=== PATIENT | female | born 1975 | race Caucasian/White ===

== ENCOUNTER 2021-08-14 17:12 | Emergency (ER) | payer SELFPAY ==
[2014-09-28 10:57] VITALS: BP 95/64
[~2021-08-14 17:12] MED LIST: ACET325T9 PO; ALPR1TAB2 PO; ALPR1TAB6 PO; ASPI325T8 PO; BUPR150T8 PO; BUTA1CAP29 PO; CETI10CA PO; DIPH25CA58 PO; HYDR-2679 PO; HYDR-3165 PO; Hydrocodone Bit/Acetaminophen PO; IBUP800T19 PO; IPRA4AER IH; LISI1TAB37 PO; ONDA4TAB7 PO; Sulfamethoxazole/Trimethoprim PO; TRAM50TA PO; TRAZ300T2 PO
--- NOTE | 2021-08-14 18:24 | PHYS DOC ---
Past History Past Medical History: Anxiety, Hypertension, Migraines, MRSA, Other Past Surgical History: Hysterectomy, Tubal ligation, Other Smoking: Cigarettes, Less than 1pk/day Alcohol Use: None Drug Use: Amphetamine, Benzodiazepine Adult General Chief Complaint Chief Complaint: MULTIPLE COMPLAINTS HPI HPI Left without being seen Allergies Allergies Allergies Coded Allergies Type Severity Reaction Last Updated Verified No Known Drug Allergies 03/25/14 No EKG EKG [] Radiology/Procedures Radiology/Procedures [] Heart Score C/O Chest Pain: N/A Risk Factors: Risk Factors: DM, Current or recent (<one month) smoker, HTN, HLP, family history of CAD, obesity. Risk Scores: Risk Factors: DM, Current or recent (<one month) smoker, HTN, HLP, family history of CAD, obesity. Course & Med Decision Making Course & Med Decision Making Left without being seen Florentin Disclaimer Florentin Disclaimer This electronic medical record was generated, in whole or in part, using a voice recognition dictation system. Departure Departure: Impression: Primary Impression: Patient left without being seen Disposition: 07 LEFT AWOL/ELOPED Condition: LEFT WITHOUT BEING SEEN CHITO CALLEJAS MD Aug 14, 2021 18:24
== END 2021-08-14 18:10 | disposition left against medical advice (07) ==
LOC: ER 17:12
DX: R10.9 Unspecified abdominal pain (principal); Z53.21 Procedure and treatment not carried out due to patient leaving prior to being seen by health care provider; F41.9 Anxiety disorder, unspecified; I10 Essential (primary) hypertension; G43.909 Migraine, unspecified, not intractable, without status migrainosus; F17.210 Nicotine dependence, cigarettes, uncomplicated; Z86.14 Personal history of Methicillin resistant Staphylococcus aureus infection

== ENCOUNTER 2021-11-09 00:53 | Emergency (ER) | payer MEDICAID ==
[~2021-11-09] VITALS: Ht 167.6 cm; Wt 95.4 kg
[2021-11-09 01:12] VITALS: BP 99/71
--- NOTE | 2021-11-09 01:33 | PHYS DOC ---
Past History Past Medical History: Anxiety, Hypertension, Migraines, MRSA, Other Additional Past Medical Histor: blood clots Past Surgical History: Hysterectomy, Tubal ligation, Other Additional Past Surgical Histo: hernia repair, bladder sling Smoking: Cigarettes, Less than 1pk/day Alcohol Use: None Drug Use: Amphetamine, Benzodiazepine General Adult EDM: Chief Complaint: MULTIPLE COMPLAINTS HPI: HPI: 46-year-old female presents with right elbow pain, scalp laceration, left foot pain. The patient had a sewing needle stabbing her foot several days ago. She was seen in the emergency room twice is currently on 2 antibiotics. She states her foot is less swollen but still hurts. When she got home after the second ER visit she fell down some stairs. This was 3 days ago. She had a laceration to her right posterior scalp and right elbow pain. She presents tonight because it hurts too bad to wait till morning. No trauma in the last 48 hours. Review of Systems: Review of Systems: Constitutional: Denies fever or chills Eyes: Denies change in visual acuity HENT: Denies nasal congestion or sore throat Respiratory: Denies cough or shortness of breath Cardiovascular: Denies chest pain or edema GI: Denies abdominal pain, nausea, vomiting, bloody stools or diarrhea : Denies dysuria Musculoskeletal: Left foot pain, right elbow pain. Integument: Laceration of scalp Neurologic: Denies headache, focal weakness or sensory changes Endocrine: Denies polyuria or polydipsia Lymphatic: Denies swollen glands Psychiatric: Denies depression or anxiety Allergies: Allergies: Allergies Coded Allergies Type Severity Reaction Last Updated Verified No Known Drug Allergies 11/09/21 No Physical Exam: PE: Constitutional: Well developed, well nourished, unkept, no acute distress, non- toxic appearance. [] HENT: Normocephalic, atraumatic, bilateral external ears normal, oropharynx moist, no oral exudates, nose normal. [] Eyes: PERRLA, EOMI, conjunctiva normal, no discharge. [] Neck: Normal range of motion, no tenderness, supple, no stridor. [] Cardiovascular: Heart rate regular rhythm, no murmur [] Lungs & Thorax: Bilateral breath sounds clear to auscultation [] Abdomen: Bowel sounds normal, soft, no tenderness, no masses, no pulsatile masses. [] Skin: Warm, dry, mildly tender skin of the dorsal left foot. Greater than 24- hour old laceration of the right posterior scalp, bleeding controlled, scab well formed. [] Back: No tenderness, no CVA tenderness. [] Extremities: Small ecchymosis of the posterior proximal forearm, tender to palpation, no obvious deformity. [] Neurologic: Alert and oriented X 3, normal motor function, normal sensory funct ion, no focal deficits noted. [] Psychologic: Affect normal, judgement normal, mood anxious. [] Current Patient Data: Vital Signs: Vital Signs Date Time Temp Pulse Resp B/P (MAP) Pulse Ox O2 Delivery O2 Flow Rate FiO2 11/09/21 01:12 98.1 110 18 99/71 (80) 98 Room Air EKG: EKG: [] Radiology/Procedures: Radiology/Procedures: [] Impressions: Exam: XR FOOT_LEFT 3 VIEWS History: Fall down stairs. Comparison: None. Findings: Osseous mineralization is normal. There is a nondisplaced intra-articular fracture fifth toe proximal phalangeal base. No significant degenerative changes. Soft tissues are unremarkable. Impression: 1. Nondisplaced intra-articular fracture fifth toe proximal phalangeal base. Electronically signed by: Bib Roman MD (11/09/2021 2:16 AM) [facility] DICTATED AND SIGNED BY: BIB ROMAN MD DATE: 11/09/21214 CC: ELIANA LESTER MD; ARMEN MEI DO ~ CT HEAD/BRAIN WO History: Fall down stairs. Comparison: None. Technique: Noncontrast CT imaging was performed of the head. Findings: No intracranial hemorrhage. No mass effect. No hydrocephalus. No evidence of acute territorial infarction. Imaged orbits are unremarkable. Imaged paranasal sinuses and mastoid air cells are clear. The scalp and calvarium are unremarkable. Impression: 1. No acute intracranial abnormality. ----- Exposure: One or more of the following individualized dose reduction techniques were utilized for this examination: 1. Automated exposure control 2. Adjustment of the mA and/or kV according to patient size 3. Use of iterative reconstruction technique. Electronically signed by: Bib Roman MD (11/09/2021 2:13 AM) [facility] DICTATED AND SIGNED BY: BIB ROMAN MD DATE: 11/09/21211 CC: ELIANA LESTER MD; ARMEN MEI DO ~ Exam: XR ELBOW COMPLETE_RIGHT 3+ VIEWS History: Fall down stairs Comparison: None. Findings: Osseous mineralization is normal. No acute fracture or dislocaton. No elbow effu rimma. No significant degenerative changes. Soft tissues are unremarkable. Impression: 1. No acute osseous abnormality of the right elbow. Electronically signed by: Bib Roman MD (11/09/2021 2:15 AM) [facility] DICTATED AND SIGNED BY: BIB ROMAN MD DATE: 11/09/21212 CC: ELIANA LESTER MD; ARMEN MEI DO ~ Heart Score: C/O Chest Pain: N/A Risk Factors: Risk Factors: DM, Current or recent (<one month) smoker, HTN, HLP, family history of CAD, obesity. Risk Scores: Score 0 - 3: 2.5% MACE over next 6 weeks - Discharge Home Score 4 - 6: 20.3% MACE over next 6 weeks - Admit for Clinical Observation Score 7 - 10: 72.7% MACE over next 6 weeks - Early Invasive Strategies Course & Med Decision Making: Course & Med Decision Making Pertinent Labs and Imaging studies reviewed. (See chart for details) The patient's laceration is too old to consider repair. It actually looks well approximated and should heal on its own. No signs of infection. I have ordered head CT since patient is on Xarelto. We will also image her left foot for retained foreign body as well as her right elbow. Patient's head CT is negative for acute findings. Her elbow x-ray is negative for fracture. Her left foot x-ray does show a fracture at the base of the fifth proximal phalangeal base. See official read for more details. We will place the patient in an orthopedic shoe and advised that she follow-up with orthopedics. She is stable for discharge at this time. [] Junioron Disclaimer: Florentin Disclaimer: This electronic medical record was generated, in whole or in part, using a voice recognition dictation system. Departure Departure: Impression: Primary Impression: Contusion Additional Impression: Fracture of fifth toe, left, closed Disposition: HOME / SELF CARE / HOMELESS Condition: STABLE Referrals: ELIANA LESTER MD (PCP) Patient Instructions: Toe Fracture, [id number] Additional Instructions: You should follow-up with orthopedics for your toe fracture. You can call the [facility] orthopedic group at: [phone]. ARMEN MEI DO Nov 09, 2021 01:33
--- NOTE | 2021-11-09 02:15 | RAD ---
CT HEAD/BRAIN WO History: Fall down stairs. Comparison: None. Technique: Noncontrast CT imaging was performed of the head. Findings: No intracranial hemorrhage. No mass effect. No hydrocephalus. No evidence of acute territorial infar ction. Imaged orbits are unremarkable. Imaged paranasal sinuses and mastoid air cells are clear. The scalp a nd calvarium are unremarkable. Impression: 1. No acute intracranial abnormality. ----- Exposure: One or more of the following individualized dose reduction techniques were utilized for thi s examination: 1. Automated exposure control 2. Adjustment of the mA and/or kV according to patient size 3. Use of iterative reconstruction technique. Electronically signed by: Bib Roman MD (11/09/2021 2:13 AM) [facility]
--- NOTE | 2021-11-09 02:17 | RAD ---
Exam: XR ELBOW COMPLETE_RIGHT 3+ VIEWS History: Fall down stairs Comparison: None. Findings: Osseous mineralization is normal. No acute fracture or dislocaton. No elbow effusion. No significant degenerative changes. Soft tissues are unremarkable. Impression: 1. No acute osseous abnormality of the right elbow. Electronically signed by: Bib Roman MD (11/09/2021 2:15 AM) [facility]
--- NOTE | 2021-11-09 02:19 | RAD ---
Exam: XR FOOT_LEFT 3 VIEWS History: Fall down stairs. Comparison: None. Findings: Osseous mineralization is normal. There is a nondisplaced intra-articular fracture fifth toe proximal phalangeal base. No significant degenerative changes. Soft tissues are unremarkable. Impression: 1. Nondisplaced intra-articular fracture fifth toe proximal phalangeal base. Electronically signed by: Bib Roman MD (11/09/2021 2:16 AM) [facility]
[2021-11-09] MEDS ORDERED: HYDROcodone/APAP 7.5/325MG 1 TAB TABLET PO ONE (03:00)
== END 2021-11-09 02:50 | disposition home or self-care (01) ==
LOC: ER 00:53
DX: S92.515A Nondisplaced fracture of proximal phalanx of left lesser toe(s), initial encounter for closed fracture (principal); S01.01XA Laceration without foreign body of scalp, initial encounter; S50.11XA Contusion of right forearm, initial encounter; I10 Essential (primary) hypertension; G43.909 Migraine, unspecified, not intractable, without status migrainosus; F17.210 Nicotine dependence, cigarettes, uncomplicated; W10.8XXA Fall (on) (from) other stairs and steps, initial encounter; Y93.89 Activity, other specified; Y92.89 Other specified places as the place of occurrence of the external cause; Y99.8 Other external cause status
CPT/HCPCS: 70450; 73080; 73630; 99284